=== PATIENT | male | born 1960 | race Caucasian/White ===

== ENCOUNTER 2023-11-01 16:11 | Emergency (ER) | payer OTHER ==
[2023-11-01] MEDS ORDERED: Sodium Chloride 0.9% 10 ML Syringe FLUSH PRN (16:22)
[2023-11-01 16:39] LABS: BASOPHILS ABSOLUTE AUTO 0.05 K/uL (0.00-0.20); BASOPHILS PERCENT AUTO 0.5 % (0.0-2.0); EOSINOPHILS ABSOLUTE AUTO 0.26 K/uL (0.00-0.50); EOSINOPHILS PERCENT AUTO 2.6 % (0.0-5.0); HEMATOCRIT 49.1 % (39.0-49.0); HEMOGLOBIN 16.3 g/dL (13.1-16.8); LYMPHOCYTES ABSOLUTE AUTO 1.49 K/uL (0.50-3.50); LYMPHOCYTES PERCENT AUTO 14.9 % (10.0-50.0); MEAN CORPUSCULAR HEMOGLOBIN 30.1 pg (28.2-33.3); MEAN CORPUSCULAR HGB CONC 33.2 g/dL (31.7-36.0); MEAN CORPUSCULAR VOLUME 90.6 fL (84.0-98.0); MONOCYTES ABSOLUTE AUTO 0.62 K/uL (0.00-1.00); MONOCYTES PERCENT AUTO 6.2 % (2.0-14.0); NEUTROPHILS ABSOLUTE AUTO 7.58 K/uL (1.40-7.00); NEUTROPHILS PERCENT AUTO 75.8 % (45.0-80.0); PLATELET COUNT,PLT 279 K/uL (150-350); RED BLOOD CELL COUNT 5.42 M/uL (4.33-5.41); RED CELL DISTRIBUTION WIDTH 14.9 % (11.2-14.1)
[2023-11-01 16:57] LABS: PROTHROMBIN TIME 9.8 SEC (9.0-11.1)
[2023-11-01 16:58] LABS: ALBUMIN 3.8 g/dL (3.4-5.0); BILIRUBIN TOTAL 0.6 mg/dL (0.2-1.0); CALCIUM 8.3 mg/dL (8.5-10.1); CARBON DIOXIDE,CO2 25.3 mmol/L (21.0-32.0); CREATININE 1.09 mg/dL (0.51-1.17); EST CRCL DRUG DOSING (CG) 61.12 mL/min; MAGNESIUM 1.9 mg/dL (1.8-2.4); POTASSIUM,K 3.4 mmol/L (3.5-5.1); PROTEIN TOTAL,TP 7.4 g/dL (6.4-8.2)
[2023-11-01 17:00] LABS: ANION GAP 16.1 meq/L (7-15)
[2023-11-01 17:19] LABS: PRO B-TYPE NATRIUR PEPT,BNPPRO 9 pg/mL (0-125)
== END 2023-11-01 18:00 | disposition home or self-care (01) ==
LOC: LL.ED 16:11
DX: R55 Syncope and collapse (principal); F41.9 Anxiety disorder, unspecified; Z79.82 Long term (current) use of aspirin; Z79.899 Other long term (current) drug therapy; V47.5XXA Car driver injured in collision with fixed or stationary object in traffic accident, initial encounter
CPT/HCPCS: 36415; 71045; 80053; 83735; 83880; 84484; 85025; 85610; 93005; 93010; 99284

== ENCOUNTER 2024-02-23 16:58 | Emergency (ER) | payer OTHER | END 2024-02-23 17:29 | disposition home or self-care (01) | LOC: LL.ED 16:58 | DX: T16.2XXA Foreign body in left ear, initial encounter (principal); F17.210 Nicotine dependence, cigarettes, uncomplicated; I10 Essential (primary) hypertension; E78.00 Pure hypercholesterolemia, unspecified; K21.9 Gastro-esophageal reflux disease without esophagitis; Z79.899 Other long term (current) drug therapy | CPT/HCPCS: 69200; 99282-25 ==

== ENCOUNTER 2024-03-06 18:57 | Emergency (ER) | payer OTHER ==
[2024-03-06] MEDS ORDERED: Sodium Chloride 0.9% 10 ML Syringe FLUSH PRN (19:11)
[2024-03-06] MEDS: Sodium Chloride 0.9% 1,000 ML IV SCH (19:21)
[2024-03-06] MEDS: Ketorolac 30 MG/ML SDV IVPUSH ONE (19:52)
[2024-03-06 19:54] LABS: BILIRUBIN,URINE LARGE (NEGATIVE); GLUCOSE,URINE NEGATIVE (NEGATIVE); KETONES,URINE TRACE mg/dL (NEGATIVE); LEUKOCYTE ESTERASE,URINE NEGATIVE (NEGATIVE); NITRITE,URINE NEGATIVE (NEGATIVE); OCCULT BLOOD,URINE MODERATE (NEGATIVE); PH,URINE 5.5 (5.0-9.0); PROTEIN,URINE >=300 mg/dL (NEGATIVE); UROBILINOGEN,URINE >=8.0 E.U./dL (0.2-1.0)
[2024-03-06 20:05] LABS: BACTERIA,URINE NOT SEEN /HPF (NONE TO FEW); EPITHELIAL CELLS,URINE MODERATE /LPF; RBC,URINE 0-5 /HPF; WBC,URINE 0-5 /HPF
[2024-03-06 20:06] LABS: AMORPHOUS SEDIMENT,URINE MANY /HPF (0/HPF); GRANULAR CASTS,URINE MODERATE
[2024-03-06 20:49] LABS: ALANINE AMINOTRANSFERASE,ALT 43 U/L (12-78); ALBUMIN 2.4 g/dL (3.4-5.0); ALKALINE PHOSPHATASE 160 IU/L (46-116); ASPARTATE AMNIOTRANSFERASE,AST 33 U/L (15-37); BILIRUBIN TOTAL 3.3 mg/dL (0.2-1.0); BLOOD UREA NITROGEN,BUN 19 mg/dL (7-18); CALCIUM 8.2 mg/dL (8.5-10.1); CARBON DIOXIDE,CO2 23.9 mmol/L (21.0-32.0); CHLORIDE,CL 97 mmol/L (98-107); CREATININE 1.44 mg/dL (0.51-1.17); GLUCOSE RANDOM 119 mg/dL (70-99); POTASSIUM,K 3.7 mmol/L (3.5-5.1); PROTEIN TOTAL,TP 6.1 g/dL (6.4-8.2); SODIUM,NA 132 mmol/L (136-145)
[2024-03-06 20:51] LABS: ANION GAP 14.8 meq/L (7-15); ESTIMATED GFR 55 mL/min (>=60)
[2024-03-06 20:53] LABS: BASOPHILS ABSOLUTE AUTO 0.02 K/uL (0.00-0.20); BASOPHILS PERCENT AUTO 0.3 % (0.0-2.0); EOSINOPHILS ABSOLUTE AUTO 0.01 K/uL (0.00-0.50); EOSINOPHILS PERCENT AUTO 0.1 % (0.0-5.0); HEMATOCRIT 40.1 % (39.0-49.0); HEMOGLOBIN 13.7 g/dL (13.1-16.8); LYMPHOCYTES ABSOLUTE AUTO 0.45 K/uL (0.50-3.50); LYMPHOCYTES PERCENT AUTO 6.7 % (10.0-50.0); MEAN CORPUSCULAR HEMOGLOBIN 30.8 pg (28.2-33.3); MEAN CORPUSCULAR HGB CONC 34.2 g/dL (31.7-36.0); MEAN CORPUSCULAR VOLUME 90.1 fL (84.0-98.0); MONOCYTES ABSOLUTE AUTO 0.59 K/uL (0.00-1.00); MONOCYTES PERCENT AUTO 8.7 % (2.0-14.0); NEUTROPHILS ABSOLUTE AUTO 5.68 K/uL (1.40-7.00); NEUTROPHILS PERCENT AUTO 84.2 % (45.0-80.0); RED BLOOD CELL COUNT 4.45 M/uL (4.33-5.41); RED CELL DISTRIBUTION WIDTH 15.7 % (11.2-14.1); WHITE BLOOD CELL COUNT,WBC 6.8 K/uL (4.0-10.2)
[2024-03-06 20:54] LABS: PLATELET COUNT,PLT 66 K/uL (150-350)
[2024-03-07 07:02] LABS: APPEARANCE,URINE CLOUDY
[2024-03-07 07:03] LABS: COLOR,URINE DARK YELLOW
== END 2024-03-06 21:15 | disposition home or self-care (01) ==
LOC: LL.ED 18:57
DX: R68.83 Chills (without fever) (principal); E86.0 Dehydration; I10 Essential (primary) hypertension; E78.00 Pure hypercholesterolemia, unspecified; F17.210 Nicotine dependence, cigarettes, uncomplicated; Z79.899 Other long term (current) drug therapy
CPT/HCPCS: 36415; 80053; 81001; 82947; 85025; 87635; 96361; 96374; 99284; J1885; J7030; U0002